=== PATIENT | female | born 1955 | race Caucasian/White ===

== ENCOUNTER 2023-07-29 10:13 | Outpatient (CLI) | payer MEDICARE, BC ==
--- NOTE | 2023-07-29 13:55 | Ultrasound Report ---
PROCEDURE: Ultrasound abdomen-limited INDICATIONS: ELEVATED LIVER ENZYMES TECHNIQUE: Ultrasound of the abdominal right upper quadrant was obtained with image documentation. COMPARISONS: None. FINDINGS: Liver: Normal Liver shows diffusely increased echogenicity without focal mass lesion. No intrahepat ic ductal dilation. Gallbladder: Sonolucent without cholelithiasis. No gallbladder wall thickening. No pericholecystic fluid or Talbot's sign. Common Bile Duct: 7.7 mm. Pancreas: Unremarkable as visualized. Right Kidney: Appropriate in size and echotexture. No evidence of hydronephrosis. No shadowing calc meghan. No solid or cystic mass lesion. IMPRESSION: Mildly dilated proximal CBD at 7.7 mm. Consider follow-up MRCP if clinically warranted. Hepatic fatty infiltration. No evidence of mass lesion. Reviewed by: Dio Moore MD on 07/29/2023 12:54 PM [place] Approved by: Dio Moore MD on 07/29/2023 12:54 PM [place] Station ID: [id number]
== END 2023-07-29 10:14 | disposition home or self-care (01) ==
LOC: DI 10:13
PROVIDERS: ATTEND Internal Medicine
DX: R74.8 Abnormal levels of other serum enzymes (principal); K83.8 Other specified diseases of biliary tract; K76.0 Fatty (change of) liver, not elsewhere classified

== ENCOUNTER 2024-01-10 13:14 | Outpatient (CLI) | payer MEDICARE, BC ==
--- NOTE | 2024-01-10 15:43 | MRI Report ---
PROCEDURE: Lumbar Spine WO INDICATIONS: LUMBAR RADICULITIS TECHNIQUE: Noncontrast sagittal T1 spin echo and T2 fast echo, sagittal STIR, axial T1 and T2 fast spin echo thr ough the lumbar spine. In cases with scoliosis, additional coronal T2 fast spin echo may be performe d. COMPARISON: None. FINDINGS: Image quality: Excellent. Alignment and Curvature: Dextrocurvature of the lumbar spine. Straightening of the normal lumbar lord osis. Minimal anterolisthesis of L3 on L4.. Bone Marrow: Modic type III degenerative endplate changes at L1-L2. Mild Modic type I degenerative e ndplate changes at other levels, most pronounced at L4-5. Marrow is of normal overall signal. No acu te vertebral body compression fractures. Spinal Cord: Conus medullaris terminates at the L1 level. Visualized cord demonstrates normal signa l and size. Paraspinous Soft Tissues: No paravertebral masses. T12-L1: Disc desiccation and minimal disc bulge. Facet arthropathy. No central canal or neuroforamin al stenosis. L1-L2: Severe disc desiccation and height loss. Diffuse disc bulge. Facet arthropathy and thickeni ng of ligamentum flavum. Moderate left lateral recess with abutment of the descending left L2 nerve r oot. No significant central canal stenosis. Mild left and no right neuroforaminal stenosis. L2-L3: Disc desiccation and height loss. Diffuse disc bulge. Facet arthropathy. No significant momo tral canal stenosis. Mild left and no right neuroforaminal stenosis. L3-L4: Disc desiccation, height loss and a posterior disc bulge. Facet arthropathy and thickening o f ligamentum flavum. Mild central canal stenosis. Mild left and no right neuroforaminal stenosis. L4-L5: Disc desiccation and height loss. Mild diffuse disc bulge. Facet arthropathy and thickening of ligamentum flavum. Mild central canal stenosis. Moderate right and no left neuroforaminal stenosis . L5-S1: Disc desiccation and mild diffuse disc bulge. Facet arthropathy and thickening of ligamentum flavum. No significant central canal stenosis. No neuroforaminal stenosis. IMPRESSION: 1.Multilevel degenerative changes of the lumbar spine with dextro scoliotic curvature, as described a sobeida. 2.Mild central canal stenosis at L3-L4 and L4-5. 3.Moderate right neuroforaminal stenosis at L4-5. Mild neuroforaminal narrowing at other levels, as d escribed above. Reviewed by: Yair Sheriff MD on 01/10/2024 3:42 PM PDT Approved by: Yair Sheriff MD on 01/10/2024 3:42 PM PDT Station ID: [id number]
== END 2024-01-10 13:15 | disposition home or self-care (01) ==
LOC: DI 13:14
PROVIDERS: ATTEND Specialist
DX: M51.36 Other intervertebral disc degeneration, lumbar region (principal); M48.061 Spinal stenosis, lumbar region without neurogenic claudication; M47.816 Spondylosis without myelopathy or radiculopathy, lumbar region; M47.817 Spondylosis without myelopathy or radiculopathy, lumbosacral region; M51.37 Other intervertebral disc degeneration, lumbosacral region; M41.9 Scoliosis, unspecified